=== PATIENT | female | born 1945 ===

== ENCOUNTER 2017-01-15 13:18 | Emergency (ER) | payer OTHER ==
[2017-01-15 14:44] VITALS: BP 142/70; PULSE 60; RESP 16; TEMP 97.3; O2SAT 100
--- NOTE | 2017-01-15 15:20 | C.PDOC ---
History Of Present Illness 71 yo female come in for evaluation of Right shoulder pain gradually developed for past 4 days " after pulled my shoulder". Pt described pain as aching, localized, non-radiating and worse with Right shoulder movement. Otherwise, pt denies head injury, neck pain, CP, SOB, dyspnea, diaphoresis, palpitation, Right shoulder deformity/weakness, sensory or vascular deficits to Right arm. Ambulate to ED for evaluation, not in any apparent distress. Time Seen by Provider: 01/15/17 14:50 Chief Complaint (Nursing): Upper Extremity Problem/Injury History Per: Patient History/Exam Limitations: no limitations Onset/Duration Of Symptoms: Gradual (4 days) Current Symptoms Are (Timing): Still Present Quality: Sharp Past Medical History Reviewed: Historical Data, Nursing Documentation, Vital Signs Vital Signs: Last Vital Signs Temp 97.3 F L 01/15/17 14:41 Pulse 60 01/15/17 14:41 Resp 16 01/15/17 14:41 BP 142/70 01/15/17 14:41 Pulse Ox 100 01/15/17 15:39 Family History: States: No Known Family Hx - Social History Hx Alcohol Use: No Hx Substance Use: No - Immunization History Hx Tetanus Toxoid Vaccination: No Hx Influenza Vaccination: Yes Hx Pneumococcal Vaccination: No Review Of Systems Except As Marked, All Systems Reviewed And Found Negative. Cardiovascular: Negative for: Chest Pain, Palpitations Respiratory: Negative for: Shortness of Breath Musculoskeletal: Positive for: Shoulder Pain (Right shoulder). Negative for: Neck Pain, Arm Pain Physical Exam - Physical Exam Appears: Well, Non-toxic, No Acute Distress Skin: Normal Color, Warm, No Rash Head: Atraumatic, Normacephalic Throat: Normal, No Erythema, No Exudate, No Drooling Neck: Normal, Normal ROM, Supple Chest: Symmetrical Cardiovascular: Rhythm Regular Respiratory: Normal Breath Sounds, No Stridor, No Wheezing Gastrointestinal/Abdominal: Normal Exam, Soft, No Tenderness Back: Normal Inspection Extremity: Normal ROM (RUE), Tenderness (mild tenderness over proximal humerus . NO palpable deformity, no skin changes.), No Deformity, No Swelling Extremity: Bilateral: Atraumatic Neurological/Psych: Oriented x3, Normal Speech, Normal Motor, Normal Sensation, Normal Reflexes ED Course And Treatment ECG: Interpreted By Me, Viewed By Me ECG Rhythm: Sinus Rhythm ECG Interpretation: Normal Interpretation Of ECG: SR@78/min, LAD, Qwave in III, AVR, no acute T wave or ST- T changes. No old ekg available to compare. O2 Sat by Pulse Oximetry: 100 Pulse Ox Interpretation: Normal - Other Rad X-Ray - Right Shoulder X-Ray: Interpreted by Me, Viewed By Me Progress Note: On re-eval, ptis afebrile, hemodynamicaly stable. NOn-toxic. AMbulatory in ED with stable gait. CVS: (+)S1S2, reg. Lungs: CTA B/L, BS equal B/L. RUE: exam c/w tenderness over proximal biceps tendon. FAROM, no neurovascular deficits. Xray review- no acute fx. SPlint/ analgesics given. Pt advised and ref. to F/u with Ortho in 2-3 days for re-eval. return if any new changes. Medical Decision Making Medical Decision Making: PLAN: * X-Ray - Right Shoulder * Motrin PO * Tramadol PO Disposition Counseled Patient/Family Regarding: Studies Performed, Diagnosis, Need For Followup, Rx Given - Disposition Referrals: Tawana Schmitz MD [Staff Provider] - Disposition: HOME/ ROUTINE Disposition Time: 15:25 Condition: STABLE Additional Instructions: LIght duty to Right shoulder Avoid shoulder lifting Take medication as prescribed Follow up with Orthopedist in 2-3 days for re-evaluation. Return to ED if any worsening or new changes. Prescriptions: Ketorolac Tromethamine [Toradol] 10 mg PO BID #10 tab traMADol [Ultram] 50 mg PO TID #10 tab Instructions: Shoulder Sprain (ED), Tendinitis (ED) Forms: Work Excuse Print Language: MACEDONIAN - Clinical Impression Clinical Impression: Shoulder tendonitis - PA / MOTION STUDY ANALYST / Resident Statement MD/DO has reviewed & agrees with the documentation as recorded. - Scribe Statement The provider has reviewed the documentation as recorded by the Scribe Monika Calderon All medical record entries made by the Brendaibrajeev were at my direction and personally dictated by me. I have reviewed the chart and agree that the record accurately reflects my personal performance of the history, physical exam, medical decision making, and the department course for this patient. I have also personally directed, reviewed, and agree with the discharge instructions and disposition.
--- NOTE | 2017-01-15 16:05 | RAD ---
PROCEDURE: Radiographs of the Right Shoulder HISTORY: pain/injury COMPARISON: None available. FINDINGS: BONES: No acute displaced fracture. The distal clavicle and underlying ribs appear intact. JOINTS: No acute dislocation. Acromioclavicular arthropathy. SOFT TISSUES: Soft tissues appear unremarkable. No evidence of radiopaque foreign body. IMPRESSION: No acute displaced fracture or dislocation evident. If symptoms persist or if there is continued clinical concern, x-ray follow-up in 7-10 days should be considered.
== END 2017-01-15 15:54 | disposition home or self-care (01) ==
LOC: C.ER 13:18
DX: M75.91 Shoulder lesion, unspecified, right shoulder (principal)

== ENCOUNTER 2018-03-03 16:17 | Emergency (ER) | payer OTHER ==
[2018-03-03 16:26] VITALS: TEMP 97.9
--- NOTE | 2018-03-03 16:33 | C.PDOC ---
History Of Present Illness <Mel Knight - Last Filed: 03/03/18 18:31> <Love Dempsey - Last Filed: 03/03/18 18:37> 72 y/o female complaining of painful, swollen, and pruritic bilateral legs for the last few months. She was seen by PMD who recommended elevation, and gave a prescription for labs but she did not complete these. Patient also complains of dyspnea with exertion and fatigue. (Love Dempsey) <Mel Knight - Last Filed: 03/03/18 18:31> History Per: Patient Onset/Duration Of Symptoms: Days (30+) Current Symptoms Are (Timing): Worse Severity: Moderate Additional History Per: Patient <Love Dempsey - Last Filed: 03/03/18 18:37> Chief Complaint (Nursing): Lower Extremity Problem/Injury Past Medical History - Medical History PMH: HTN Surgical History: No Surg Hx Family History: States: Unknown Family Hx - Social History Hx Alcohol Use: No Hx Substance Use: No - Immunization History Hx Tetanus Toxoid Vaccination: No Hx Influenza Vaccination: Yes Hx Pneumococcal Vaccination: No <Love Dempsey - Last Filed: 03/03/18 18:37> Vital Signs: Last Vital Signs Temp 97.9 F 03/03/18 16:21 Pulse 74 03/03/18 16:21 Resp 20 03/03/18 16:21 BP 130/75 03/03/18 16:21 Pulse Ox 98 03/03/18 18:23 Review Of Systems Except As Marked, All Systems Reviewed And Found Negative. Cardiovascular: Positive for: Edema Respiratory: Positive for: Shortness of Breath <Love Dempsey - Last Filed: 03/03/18 18:37> Physical Exam - Physical Exam Appears: Well, No Acute Distress Skin: Normal Color, Warm, Dry Head: Atraumatic, Normacephalic Eye(s): bilateral: Normal Inspection, PERRL, EOMI Nose: Normal Throat: Normal Neck: Normal Chest: Symmetrical, No Tenderness Cardiovascular: Rhythm Regular Respiratory: Normal Breath Sounds, No Rales, No Rhonchi, No Wheezing Gastrointestinal/Abdominal: Normal Exam, Bowel Sounds, Soft, No Tenderness Back: Normal Inspection Extremity: Normal ROM, Tenderness (bilateral calf and ankle), Swelling (BLE pitting, 2+.), Other (bilateral ankle erythema. ) Neurological/Psych: Oriented x3, Normal Speech, Normal Cognition <Love Dempsey - Last Filed: 03/03/18 18:37> ED Course And Treatment - Laboratory Results Result Diagrams: 03/03/18 17:27 03/03/18 17:27 <Mel Knight - Last Filed: 03/03/18 18:31> - Laboratory Results Result Diagrams: 03/03/18 17:27 03/03/18 17:27 ECG: Interpreted By Me, Viewed By Me ECG Interpretation: Abnormal Interpretation Of ECG: NSR rate 60 with Q-Waves in V3 O2 Sat by Pulse Oximetry: 98 - Other Rad CXR X-Ray: Viewed By Me, Read By Radiologist Interpretation: Accession No. : [id number]. Patient Name / ID : REINALDO MCGILL / [id number]. Exam Date : 03/03/2018 16:56:23 ( Approved ). Study Comment : Sex / Age : F / 72Y. Creator : Aneesh Cisneros MD. Dictator : Aneesh Cisneros MD. Rejoiner : Mill Platform Supervisor : Aneesh Cisneros MD. Approver2 : Report Date : 03/03/2018 17:21:28. My Comment : . PROCEDURE: CHEST RADIOGRAPH, 1 VIEW. HISTORY: SOB. COMPARISON: None available. FINDINGS: LUNGS: Clear. PLEURA: No pneumothorax or pleural fluid seen. CARDIOVASCULAR: No radiographic findings to suggest acute or significant cardiovascular disease. OSSEOUS STRUCTURES: No significant abnormalities. VISUALIZED UPPER ABDOMEN: Normal. OTHER FINDINGS: None. IMPRESSION: No active disease. <Aviva Dempseyerie - Last Filed: 03/03/18 18:37> Supervising Attending Note - Supervising Attending Note The Documented history was done by the: Physician Drug Coordinator The documented physical exam was done by the: Physician Drug Coordinator The documented procedures were done by the: Physician Drug Coordinator EM CAVEAT: Language Barrier - Attestation: I have personally seen and examined this patient.: Yes I have fully participated in the care of the patient.: Yes I have reviewed all pertinent clinical information, including history, physical exam and plan: Yes <Mel Knight - Last Filed: 03/03/18 18:31> <Love Dempsey - Last Filed: 03/03/18 18:37> - Notes: Notes:: new onset B/L LOWER LEG REDNESS X 5 DAYS. B/L LEG SWELLING X SEV MONTHS, NONCOMPLIANT W OUTPT [facility] PRESCRIBED BY PMD DUE TO LACK OF INSURANCE. NO TRAUMA. +ITCH. NO FEVER, CHILLS, OTHER ASSOC SX. LABS, REPORTS REVIEWED. NO PRIOR TX FOR CURRENT CELLULITIS. PO ABX, PT AGREES W DC PLAN. SKIN MARKED. (Mel Knight) Medical Decision Making <Mel Knight - Last Filed: 03/03/18 18:31> <Love Dempsey - Last Filed: 03/03/18 18:37> Medical Decision Making: Impression: BLE edema and dyspnea Plan: - CXR - EKG - US Doppler BLE negative for DVT - Augmentin po - d/c home on Augmentin with PMD follow up - Skin erythema was marked - instructed to return to ED if erythema spreads and crossed marking Scribe Attestation: Documented by Kelly Sullivan acting as a scribe for LILIAN Berger MD Scribe Attestation: All medical record entries made by the Scribe were at my direction and personally dictated by me. I have reviewed the chart and agree that the record accurately reflects my personal performance of the history, physical exam, medical decision making, and the department course for this patient. I have also personally directed, reviewed, and agree with the discharge instructions and disposition. (Love Dempsey) Disposition Counseled Patient/Family Regarding: Studies Performed, Diagnosis, Need For Followup, Rx Given - Disposition Disposition Time: 18:31 <Mel Knight - Last Filed: 03/03/18 18:31> <Love Dempsey - Last Filed: 03/03/18 18:37> - Disposition Referrals: your,pmd [Other] Disposition: HOME/ ROUTINE Condition: IMPROVED Prescriptions: Acetaminophen [Tylenol Extra Strength] 2 tab PO Q6 #30 tablet Cephalexin [cephalexin] 500 mg PO BID #14 cap Ibuprofen [Motrin] 400 mg PO QID #30 tab Instructions: Dependent Edema (DC), Cellulitis (Skin Infection), Adult (DC) Forms: [employer] (Lebanese), Work Excuse Print Language: BULGARIAN - Clinical Impression Clinical Impression: Leg swelling, Cellulitis
--- NOTE | 2018-03-03 17:23 | RAD ---
PROCEDURE: CHEST RADIOGRAPH, 1 VIEW HISTORY: SOB COMPARISON: None available. FINDINGS: LUNGS: Clear. PLEURA: No pneumothorax or pleural fluid seen. CARDIOVASCULAR: No radiographic findings to suggest acute or significant cardiovascular disease. OSSEOUS STRUCTURES: No significant abnormalities. VISUALIZED UPPER ABDOMEN: Normal. OTHER FINDINGS: None. IMPRESSION: No active disease.
[2018-03-03 17:30] LABS: BASO % 0.6 % (0.0-2.0); EOS # 0.2 K/uL (0.0-0.7); EOS % 2.7 % (0.0-4.0); HEMOGLOBIN 13.1 g/dL (11.0-16.0); LYMPH # 1.8 K/uL (1.0-4.3); LYMPH % 24.5 % (20.0-40.0); MEAN CELL VOLUME 78.3 fL (81.0-99.0); MEAN CORPUSCULAR HEMOGLOBIN 26.2 pg (27.0-31.0); MEAN CORPUSCULAR HGB CONC 33.5 g/dL (33.0-37.0); MEAN PLATELET VOLUME 6.8 fL (7.2-11.7); MONO # 0.4 K/uL (0.0-0.8); MONO % 5.9 % (0.0-10.0); NEUT # 4.9 K/uL (1.8-7.0); NEUT % 66.3 % (50.0-75.0); RED CELL DISTRIBUTION WIDTH 15.2 % (11.5-14.5); WHITE BLOOD COUNT 7.4 K/uL (4.8-10.8)
[2018-03-03 17:35] LABS: URINE BILIRUBIN NEGATIVE (NEGATIVE); URINE BLOOD NEGATIVE (NEGATIVE); URINE CLARITY Clear (Clear); URINE COLOR Straw (YELLOW); URINE GLUCOSE (UA) NORMAL (Normal); URINE LEUKOCYTE ESTERASE NEG Leu/uL (Negative); URINE PROTEIN NEGATIVE (NEGATIVE); URINE UROBILINOGEN NORMAL mg/dL (0.2-1.0)
[2018-03-03 17:38] LABS: PROTHROMBIN TIME 10.9 SECONDS (9.7-12.2)
[2018-03-03 17:41] LABS: ALB/GLOB RATIO 1.2 (1.0-2.1); ALBUMIN 4.6 g/dL (3.5-5.0); ALT/SGPT 24 U/L (9-52); AST/SGOT 25 U/L (14-36); BLOOD UREA NITROGEN 19 mg/dL (7-17); CALCIUM 8.7 mg/dl (8.6-10.4); GFR AFRICAN-AMERICAN > 60; GFR NON-AFRICAN AMERICAN > 60
[2018-03-03 17:51] LABS: B-TYPE NATRIURETIC PEPTIDE 102 pg/mL (0-900); CK-MB 1.47 ng/mL (0.0-3.38)
[2018-03-03] MEDS ORDERED: Amoxicillin-Clav 875-125 mg Tab PO STA (18:31)
[2018-03-03] MEDS ORDERED: Amoxicillin-Clav 875-125 mg Tab PO ONE (18:40)
[2018-03-03 18:51] VITALS: BP 131/74; PULSE 61; RESP 17; O2SAT 97
--- NOTE | 2018-03-04 09:17 | VASCLAB ---
PROCEDURE: Lower Extremity Venous Duplex Exam. HISTORY: LE edema/pain PRIORS: None. TECHNIQUE: Bilateral common femoral, femoral, popliteal and posterior tibial, peroneal and great saphenous veins were evaluated. Flow was assessed with color Doppler, compressibility, assessment of phasic flow and augmentation response. Report prepared by Francisco Javier Neil, T FINDINGS: RIGHT: 1. Common Femoral Vein: 1.1. Compressibility - Fully compressible: Thrombus - None : Flow - Phasic: Augmentation -Normal: Reflux - . 2. Femoral Vein: 2.1. Compressibility - Fully compressible: Thrombus - None : Flow - Phasic: Augmentation -Normal: Reflux - . 3. Popliteal Vein: 3.1. Compressibility - Fully compressible: Thrombus - None : Flow - Phasic: Augmentation -Normal: Reflux - . 4. Posterior Tibial Vein: 4.1. Compressibility - Fully compressible: Thrombus - None: Flow - : Augmentation -: Reflux - . 5. Peroneal Vein: 5.1. Compressibility - Fully compressible: Thrombus - None: Flow - : Augmentation -: Reflux - . 6. Great Saphenous Vein: 6.1. Compressibility - Fully compressible: Thrombus - None: Flow - Phasic: Augmentation - : Reflux - . LEFT: 1. Common Femoral Vein: 1.1. Compressibility - Fully compressible: Thrombus - None: Flow - Phasic: Augmentation -Normal: Reflux - . 2. Femoral Vein: 2.1. Compressibility - Fully compressible: Thrombus - None: Flow - Phasic: Augmentation -Normal: Reflux - . 3. Popliteal Vein: 3.1. Compressibility - Fully compressible: Thrombus - None : Flow - Phasic: Augmentation -Normal: Reflux - . 4. Posterior Tibial Vein: 4.1. Compressibility - Fully compressible: Thrombus - None: Flow - : Augmentation -: Reflux - None. 5. Peroneal Vein: 5.1. Compressibility - Fully compressible: Thrombus - None: Flow - : Augmentation -: Reflux - . 6. Great Saphenous Vein: 6.1. Compressibility - Fully compressible: Thrombus - None: Flow - Phasic: Augmentation - : Reflux - . OTHER FINDINGS: Right: None significant. Left: None significant. IMPRESSION: Right: No evidence of deep or superficial vein thrombosis of the right lower extremity. Left: No evidence of deep or superficial vein thrombosis of the left lower extremity.
--- NOTE | 2018-03-04 12:03 | CARD ---
APPROVED REPORT EKG Measurement Heart [id number] [id number] [id number] <Conclusion> Normal sinus rhythm Cannot rule out Anterior infarct, age undetermined Abnormal ECG
== END 2018-03-03 19:19 | disposition home or self-care (01) ==
LOC: C.ER 16:17
DX: M79.89 Other specified soft tissue disorders (principal); L03.90 Cellulitis, unspecified
CPT/HCPCS: 71045; 80053; 81001; 82550; 82553; 83880; 84484; 85025; 85610; 85730; 93005; 93970; 96374; 99284; J1885

== ENCOUNTER 2018-10-21 10:35 | Outpatient (CLI) | payer OTHER | END 2018-10-21 10:36 | disposition home or self-care (01) | LOC: C.LAB 10:35 | DX: E78.2 Mixed hyperlipidemia (principal); R73.01 Impaired fasting glucose; I10 Essential (primary) hypertension; E55.9 Vitamin D deficiency, unspecified ==

== ENCOUNTER 2018-10-24 10:09 | Outpatient (CLI) | payer OTHER | END 2018-10-24 10:10 | disposition home or self-care (01) | LOC: C.DEXAIC 10:09 ==